=== PATIENT | male | born 1965 | race Caucasian/White ===

== ENCOUNTER 2016-08-23 00:36 | Emergency (ER) | payer BC ==
[~2016-08-23] VITALS: Ht 185.4 cm; Wt 90.0 kg
[2016-08-23 00:37] VITALS: BP 183/101; PULSE 64; RESP 16; TEMP 97.9; O2SAT 97
[2016-08-23 01:09] VITALS: BP 148/70; PULSE 62; RESP 17; O2SAT 99
[2016-08-23] MEDS ORDERED: ASPIRIN 81 MG CHEW TAB PO ONE (02:00)
[2016-08-23] MEDS ORDERED: NITROGLYCERIN 0.4 MG SL 25 TABS/BTL SL ONE (02:00)
[2016-08-23] MEDS ORDERED: SODIUM CHLORIDE 0.9% FLUSH 10 ML FLUSH IVF PRN (02:00)
[2016-08-23] MEDS ORDERED: NITROGLYCERIN 2% OINT 1 GM PACKET TOP ONE (02:00)
--- NOTE | 2016-08-23 02:25 | RADRPT ---
EXAM DATE/TIME: 08/23/2016 02:18 [facility] COMPARISON: No previous studies available for comparison. INDICATIONS : Cephalgia. RADIATION DOSE: 39.74 CTDIvol (mGy) MEDICAL HISTORY : None SURGICAL HISTORY : None. ENCOUNTER: Initial ACUITY: 2 days PAIN SCALE: 6/10 LOCATION: cranial TECHNIQUE: Multiple contiguous axial images were obtained of the head. Using automated exposure control and adj ustment of the mA and/or kV according to patient size, radiation dose was kept as low as reasonably a chievable to obtain optimal diagnostic quality images. FINDINGS: There is no evidence for intracranial hemorrhage, mass effect, mass lesions, edema, or extra-axial fl uid collections. The visualized bony structures appear intact. The ventricles are normal size for t he patient's age. There are no signs of acute infarction for technique. CONCLUSION: Unremarkable study. Zaida Velazquez MD on August 23, 2016 at 2:23 Board Certified Radiologist. This report was verified electronically.
--- NOTE | 2016-08-23 02:28 | RADRPT ---
EXAM DATE/TIME: 08/23/2016 02:23 [facility] COMPARISON: No previous studies available for comparison. INDICATIONS : Chest pain. MEDICAL HISTORY : None. SURGICAL HISTORY : None. ENCOUNTER: Initial ACUITY: 1 day PAIN SCORE: 0/10 LOCATION: Bilateral chest FINDINGS: The lungs are clear without infiltrate, nodule, or mass. There is no appreciable pleural effusion fo r technique. Heart and mediastinum are unremarkable. CONCLUSION: No acute cardiopulmonary disease. Zaida Velazquez MD on August 23, 2016 at 2:26 Board Certified Radiologist. This report was verified electronically.
--- NOTE | 2016-08-23 02:38 | PD ---
HPI Chief Complaint: Headache Time Seen by Provider: 01:33 Travel History International Travel<30 days: No Contact w/Intl Traveler<30days: No Traveled to known affect area: No History of Present Illness HPI The patient is a 51 year old male who presents to the [facility] emergency department with a history of headache over the left side of his head that began 2 days ago. He reports that it began after he drank more alcohol than usual today prior. He has had similar headaches in the past, however this one seemed to be persisting for longer. This evening when the headache seemed to be getting worse, he felt anxious when he tried to go to bed- felt like the beltran were closing in on him. The headache has been constant for 2 days but waxes and wanes in severity. The patient reports that he has tried taking Excedrin and Tylenol for the pain over the last 2 days without much improvement. He reports incidentally that he is also had 2 days of a "burning sensation in his esophagus". He denies taking anything for indigestion. He denies having any problems with acid reflux previously. He exercises by swimming 3 x per week. He denies having any indigestion or chest pain with exercising. He is unsure whether he had a stress test done previously. The patient reports that he felt nauseated prior to arrival and had a sensation that he was having difficulty taking a deep breath. He denies having any diaphoresis. He denies having any pain in his jaw, arms, or throat associated with this. The patient reports that his headache is present behind the left eye, and the left forehead and radiates to the back of the left side of his head. He reports that the pain as a pressure sensation. PCP: Dr. Mccarthy. A review of systems, the patient denies any recent fevers, cough, congestion, neck pain, abdominal pain, vomiting , diarrhea, urinary symptoms, or neurologic symptoms. [facility] Past Medical History Narrative Medical The patient's past medical history is reportedly none. Medical History: Denies Significant Hx Tetanus Vaccination: Unknown Influenza Vaccination: No Past Surgical History Narrative Surgical The patient's past surgical history is reportedly None. Surgical History: No Previous Surgery Social History Alcohol Use: Yes (weekends, 6 beers over the weekend) Tobacco Use: No Substance Use: No Allergies-Medications (Allergen,Severity, Reaction): Coded Allergies: No Known Allergies (Unverified , 08/23/16) Narrative Medication None. Review of Systems Except as stated in HPI: all other systems reviewed are Neg General / Constitutional: No: Fever Eyes: No: Visual changes HENT: Positive: Headaches, No: Rhinorrhea, Congestion, Neck Stiffness, Neck Pain Cardiovascular: Positive: Chest Pain or Discomfort, No: Dyspnea on exertion Respiratory: No: Shortness of Breath Gastrointestinal: Positive: Nausea, Indigestion, No: Vomiting, Abdominal Pain , Changes in Bowel Habits, Loss of Appetite Genitourinary: No: Dysuria Musculoskeletal: No: Pain Skin: No Rash Neurologic: No: Weakness Psychiatric: No: Depression Endocrine: No: Polydipsia Hematologic/Lymphatic: No: Easy Bruising Physical Exam Narrative General: The patient is a well-developed well-nourished male in no acute distress. Head and Neck exam: Head is normocephalic atraumatic. Eyes: EOMI, pupils are equal round and reactive to light. Nose: Midline septum with pink mucous membranes Mouth: Dentition unremarkable. Moist mucus membranes. Posterior oropharynx is not erythematous. No tonsillar hypertrophy. Uvula midline. Airway patent. Neck: No palpable lymphadenopathy. No nuchal rigidity. No thyromegaly. Cardiovascular: Regular rate and rhythm without murmurs, gallops, or rubs. No pulse deficit to the extremities on simultaneously auscultation and palpation of his radial artery. Lungs: Clear to auscultation bilaterally. No wheezes, rhonchi, or rales. Abdomen: Soft, without tenderness to palpation in all 4 quadrants of the abdomen. No guarding, rebound, or rigidity. Normal bowel sounds are audible. No tenderness on palpation of McBurney's point. Negative Exira sign. Extremities: No clubbing, cyanosis, or edema. 2+ pulses in all 4 extremities. No calf tenderness on palpation. Back: No spinous process tenderness to palpation. No costovertebral angle tenderness to palpation. Neurologic Exam: Grossly nonfocal. Skin Exam: No rash noted. Intact skin that is warm and dry. Data Data Last Documented VS Vital Signs Date Time Temp Pulse Resp B/P Pulse Ox O2 Delivery O2 Flow Rate FiO2 08/23/16 02:50 60 17 145/70 100 Room Air 08/23/16 00:37 97.9 Orders Electrocardiogram (08/23/16 01:54) B-Type Natriuretic Peptide (08/23/16 01:54) Ckmb (Isoenzyme) Profile (08/23/16 01:54) Complete Blood Count With Diff (08/23/16 01:54) Comprehensive Metabolic Panel (08/23/16 01:54) Magnesium (Mg) (08/23/16 01:54) Prothrombin Time / Inr (Pt) (08/23/16 01:54) Act Partial Throm Time (Ptt) (08/23/16 01:54) Troponin I (08/23/16 01:54) Lipase (08/23/16 01:54) Chest, Single Ap (08/23/16 01:54) Ecg Monitoring (08/23/16 01:54) Bilateral Bp Monitoring (08/23/16 01:54) Iv Access Insert/Monitor (08/23/16 01:54) Oximetry (08/23/16 01:54) Oxygen Administration (08/23/16 01:54) Aspirin Chew (Aspirin Chew) (08/23/16 02:00) Nitroglycerin 2% Oint (Nitroglycerin 2% (08/23/16 02:00) Sodium Chloride 0.9% Flush (Ns Flush) (08/23/16 02:00) Nitroglycerin Sl (Nitrostat Sl) (08/23/16 02:00) Ct Brain W/O Iv Contrast(Rout) (08/23/16 01:54) CKMB (08/23/16 02:54) CKMB% (08/23/16 02:54) Pantoprazole Inj (Protonix Inj) (08/23/16 03:45) Ketorolac Inj (Toradol Inj) (08/23/16 03:45) Sodium Chlor 0.9% 1000 Ml Inj (Ns 1000 M (08/23/16 03:45) Labs Laboratory Tests Test 08/23/16 02:54 White Blood Count 7.3 TH/MM3 Red Blood Count 4.90 MIL/MM3 Hemoglobin 15.2 GM/DL Hematocrit 43.9 % Mean Corpuscular Volume 89.6 FL Mean Corpuscular Hemoglobin 31.0 PG Mean Corpuscular Hemoglobin 34.6 % Concent Red Cell Distribution Width 12.6 % Platelet Count 241 TH/MM3 Mean Platelet Volume 7.3 FL Neutrophils (%) (Auto) 55.7 % Lymphocytes (%) (Auto) 31.6 % Monocytes (%) (Auto) 9.7 % Eosinophils (%) (Auto) 2.1 % Basophils (%) (Auto) 0.9 % Neutrophils # (Auto) 4.0 TH/MM3 Lymphocytes # (Auto) 2.3 TH/MM3 Monocytes # (Auto) 0.7 TH/MM3 Eosinophils # (Auto) 0.2 TH/MM3 Basophils # (Auto) 0.1 TH/MM3 CBC Comment DIFF FINAL Differential Comment Prothrombin Time 10.0 SEC Prothromb Time International 0.9 RATIO Ratio Activated Partial 25.7 SEC Thromboplast Time Sodium Level 144 MEQ/L Potassium Level 3.9 MEQ/L Chloride Level 108 MEQ/L Carbon Dioxide Level 27.9 MEQ/L Anion Gap 8 MEQ/L Blood Urea Nitrogen 11 MG/DL Creatinine 0.90 MG/DL Estimat Glomerular Filtration 90 ML/MIN Rate Random Glucose 104 MG/DL Calcium Level 8.5 MG/DL Magnesium Level 2.3 MG/DL Total Bilirubin 0.3 MG/DL Aspartate Amino Transf 28 U/L (AST/SGOT) Alanine Aminotransferase 73 U/L (ALT/SGPT) Alkaline Phosphatase 84 U/L Total Creatine Kinase 175 U/L Creatine Kinase MB 1.6 NG/ML Troponin I LESS THAN 0.02 NG/ML B-Type Natriuretic Peptide 26 PG/ML Total Protein 7.1 GM/DL Albumin 3.9 GM/DL Lipase 142 U/L MDM Medical Decision Making Medical Screen Exam Complete: Yes Emergency Medical Condition: Yes Medical Record Reviewed: Yes Interpretation(s) Last Impressions Head CT 08/23/16153 Signed Impressions: Service Date/Time: Tuesday, August 23, 2016 02:18 - CONCLUSION: Unremarkable study. Zaida Velazquez MD Chest X-Ray 08/23/16153 Signed Impressions: Service Date/Time: Tuesday, August 23, 2016 02:23 - CONCLUSION: No acute cardiopulmonary disease. Zaida Velazquez MD Differential Diagnosis Acute coronary syndrome, versus acid reflux, versus panic attack, versus pneumothorax, versus hypertension, versus intracranial abnormality, versus tension headache, versus migraine headache, versus sinus headache Narrative Course During the course of the patients emergency department visit, the patients history, examination, and differential diagnosis were reviewed with the patient. The patient had IV access obtained and blood work sent for analysis. The patient was placed on a lunchroom monitor with oximetry and blood pressure monitoring. An EKG was done on arrival. The patient's EKG shows a sinus rhythm heart rate of 61, no acute ST segment elevation or depression, QRS duration is 109 ms, QTC 398 ms. T waves are inverted in lead 3, V1. The patient was initially provided normal saline 1 L IV fluid bolus. Aspirin 162 mg by mouth 1, Protonix 40 mg IV, Toradol 15 mg IV 1 for headache. The patient refused as he reports that he is feeling improved, the administration of the Toradol and Protonix. The patients laboratory studies were reviewed and remarkable for a white count of 7.3, hemoglobin 15.2, platelets 241 with 9.7 monocytes. CMP is remarkable for chloride of 108, CPK 175, troponin I of less than 0.02, lipase 142, BNP 26, PT 10, PTT 25.7 Radiology studies were reviewed and remarkable for a chest x-ray that shows no acute abnormality. CT scan of the brain shows an unremarkable study according to the reading radiologist. The patient was offered admission to the chest pain center for rule out serial cardiac enzyme protocol. The patient reports that he prefers to follow-up with his primary care physician as an outpatient. The patient reports feeling improved. The patient is resting comfortably and feels better, is alert and in no distress. The patients results and examination findings were discussed with the patient. The repeat examination is unremarkable and benign. The history, exam, diagnostic testing, and current condition do not suggest any significant pathology to warrant further testing, continued ED treatment, admission, or surgical evaluation at this point. The vital signs have been stable. The patient does not have uncontrollable pain, intractable vomiting, or other significant symptoms. The patient's condition is stable and appropriate for discharge. The patient will pursue further outpatient evaluation with a primary care physician or other designated or consulting physician as indicated in the discharge instructions. The patient expressed understanding and was agreeable with this plan. Diagnosis Primary Impression: Indigestion Additional Impressions: Headache Qualified Code: R51 - Acute nonintractable headache, unspecified headache type Chest pain Qualified Code: R07.89 - Other chest pain Referrals: Primary Care Physician Patient Instructions: Acute Headache (ED), Chest Pain (ED), General Instructions Additional Instructions: Return immediately to the emergency department if he develops any recurrence of chest pain, shortness of breath, worsening signs or symptoms, or new symptoms. Med/Other Pt SpecificInfo: No Meds Exist/No RX given Disposition: 01 DISCHARGE HOME Condition: Stable Debbie Calabrese MD Aug 23, 2016 02:38
[2016-08-23 02:50] VITALS: BP 145/70; PULSE 60; RESP 17; O2SAT 100
[2016-08-23 03:02] LABS: BASOPHIL # 0.1 TH/MM3 (0-0.2); BASOPHIL % 0.9 % (0.0-2.0); EOSINOPHIL # 0.2 TH/MM3 (0-0.4); EOSINOPHIL % 2.1 % (0.0-4.0); HEMATOCRIT 43.9 % (39.0-51.0); HEMO FLAGS DIFF FINAL; LYMPH % 31.6 % (9.0-44.0); LYMPHOCYTE # 2.3 TH/MM3 (1.0-4.8); MEAN CELL VOLUME 89.6 FL (80.0-100.0); MEAN CORPUSCULAR HGB CONC 34.6 % (32.0-36.0); MONO % 9.7 % (0.0-8.0); NEUT % 55.7 % (16.0-70.0); PLATELET COUNT 241 TH/MM3 (150-450); RED CELL DISTRIBUTION WIDTH 12.6 % (11.6-17.2); WHITE BLOOD COUNT 7.3 TH/MM3 (4.0-11.0)
[2016-08-23 03:14] LABS: ALT (GPT) 73 U/L (12-78); ANION GAP 8 MEQ/L (5-15); APTT (PATIENT) 25.7 SEC (24.3-30.1); AST (GOT) 28 U/L (15-37); BICARBONATE 27.9 MEQ/L (21.0-32.0); BLOOD UREA NITROGEN 11 MG/DL (7-18); CHLORIDE 108 MEQ/L (98-107); GLOMERULAR FILTRATION RATE 90 ML/MIN (>89); INTERNATIONAL NORMALIZED RATIO 0.9 RATIO; MAGNESIUM 2.3 MG/DL (1.5-2.5); POTASSIUM 3.9 MEQ/L (3.5-5.1); SODIUM (NA) 144 MEQ/L (136-145)
[2016-08-23 03:19] LABS: ALKALINE PHOSPHATASE 84 U/L (45-117); CREATINE KINASE 175 U/L (39-308); TOTAL BILIRUBIN ADULT 0.3 MG/DL (0.2-1.0)
[2016-08-23 03:33] LABS: CKMB 1.6 NG/ML (0.5-3.6)
[2016-08-23] MEDS ORDERED: KETOROLAC TROMETHAMINE 30 MG/ML (IVP) VIAL IV PUSH ONE (03:45)
[2016-08-23] MEDS ORDERED: SODIUM CHLOR 0.9% 1000 ML INJ 1,000 ML IV ONE (03:45)
[2016-08-23] MEDS ORDERED: PANTOPRAZOLE SODIUM 40 MG VIAL IV PUSH ONE (03:45)
--- NOTE | 2016-08-23 07:51 | EKG ---
Date Performed: 08/23/2016 Time Performed: 02:51:13 PTAGE: 51 years EKG: Sinus rhythm NORMAL ECG NO PREVIOUS TRACING DOCTOR: Max Lawrence Interpretating Date/Time 08/23/2016 07:49:35
== END 2016-08-23 05:00 | disposition home or self-care (01) ==
LOC: NEPC 00:36
DX: K30 Functional dyspepsia (principal); R51 Headache; R07.9 Chest pain, unspecified; R11.0 Nausea
CPT/HCPCS: 70450; 71010; 80053; 82550; 82552; 83690; 83735; 83880; 84484; 85025; 85610; 85730; 93005; 99285; J7030

== ENCOUNTER 2017-03-10 23:39 | Emergency (ER) | payer BC ==
[~2017-03-10] VITALS: Ht 182.9 cm; Wt 90.0 kg
[2017-03-10 23:40] VITALS: BP 160/93; PULSE 59; RESP 17; TEMP 97.7; O2SAT 98
--- NOTE | 2017-03-11 00:16 | PD ---
HPI Chief Complaint: Abdominal Pain Time Seen by Provider: 23:56 Travel History International Travel<30 days: No Contact w/Intl Traveler<30days: No Traveled to known affect area: No History of Present Illness HPI This patient complains of some vague abdominal discomfort and bloating. It comes and goes. He is currently not having any pain. He saw his primary physician today and had some lab studies done including LFTs. He is scheduled for an outpatient hida scan in the near future. No fever or vomiting. Normal stooling. He drinks 5 alcoholic drinks per week. He's had discomfort bilaterally down the abdomen. His chief complaint today is that he has a urinary infection. He says he has urinary frequency. PFSH Past Medical History Anxiety: Yes (panic attack) Diminished Hearing: No Tetanus Vaccination: Unknown Influenza Vaccination: No Past Surgical History Surgical History: No Previous Surgery Social History Alcohol Use: Yes (weekly) Tobacco Use: No Substance Use: No Allergies-Medications (Allergen,Severity, Reaction): Coded Allergies: No Known Allergies (Unverified Adverse Reaction, Unknown, 03/10/17) Review of Systems General / Constitutional: No: Fever Eyes: No: Visual changes HENT: No: Headaches Cardiovascular: No: Chest Pain or Discomfort Respiratory: No: Shortness of Breath Gastrointestinal: Positive: Abdominal Pain Genitourinary: Positive: Frequency, No: Dysuria Musculoskeletal: No: Pain Skin: No Rash Neurologic: No: Weakness Psychiatric: No: Depression Endocrine: No: Polydipsia Hematologic/Lymphatic: No: Easy Bruising Physical Exam Narrative GENERAL: Well-nourished, well-developed patient in no apparent distress. SKIN: Focused skin assessment reveals no rash and nodules. Skin is Warm and dry. HEAD: Atraumatic. Normocephalic. EYES: Pupils equal and round. No scleral icterus. No injection or drainage. ENT: No nasal bleeding or discharge. Mucous membranes pink and moist. NECK: Trachea midline. No JVD. CARDIOVASCULAR: Regular rate and rhythm. No murmur appreciated. RESPIRATORY: No accessory muscle use. Clear to auscultation. Breath sounds equal bilaterally. GASTROINTESTINAL: Abdomen soft, non-tender, nondistended. Hepatic and splenic margins not palpable. MUSCULOSKELETAL: No obvious deformities. No clubbing. No cyanosis. No edema. NEUROLOGICAL: Awake and alert. No obvious cranial nerve deficits. Motor grossly within normal limits. Normal speech. PSYCHIATRIC: Appropriate mood and affect; insight and judgment normal. Data Data Last Documented VS Vital Signs Date Time Temp Pulse Resp B/P (MAP) Pulse Ox O2 Delivery O2 Flow Rate FiO2 03/10/17 23:40 97.7 59 17 160/93 (115) 98 Room Air Orders Orders Urinalysis - C+S If Indicated (03/11/17 00:05) Labs Laboratory Tests Test 03/11/17 00:05 Urine Color LIGHT-YELLOW Urine Turbidity CLEAR Urine pH 7.5 Urine Specific [place] 1.005 Urine Protein NEG mg/dL Urine Glucose (UA) NEG mg/dL Urine Ketones NEG mg/dL Urine Occult Blood NEG Urine Nitrite NEG Urine Bilirubin NEG Urine Urobilinogen LESS THAN 2.0 MG/DL Urine Leukocyte Esterase NEG Urine Mucus FEW /lpf Microscopic Urinalysis Comment CULT NOT INDICATED MDM Medical Decision Making Medical Screen Exam Complete: Yes Emergency Medical Condition: Yes Medical Record Reviewed: Yes Differential Diagnosis Dyspepsia, irritable bowel syndrome, colitis Narrative Course I have reviewed the patient's electronic medical record. Patient is a soft benign nontender abdomen and looks asymptomatic. He is in the middle of a workup to evaluate his gallbladder. Urinalysis is normal Patient belatedly says that he had a gallbladder ultrasound earlier today as well as lab studies had a workup already just needs to get the results and discussed them with his physician Diagnosis Primary Impression: Abdominal pain Qualified Codes: R10.84 - Generalized abdominal pain Additional Impression: Urinary frequency Additional Instructions: The patient was advised to follow up with their physician and return if they worsen. Med/Other Pt SpecificInfo: Other Disposition: 01 DISCHARGE HOME Condition: Stable Reji Mei MD Mar 11, 2017 00:16
[2017-03-11 00:31] LABS: BILIRUBIN, URINE NEG (NEG); BLOOD, URINE NEG (NEG); GLUCOSE,URINE NEG (NEG); KETONE, URINE NEG (NEG); MUCUS URINE FEW /lpf (OCC); NITRITE,URINE NEG (NEG); PH, URINE 7.5 (5.0-8.5); URINE COLOR LIGHT-YELLOW (YELLW/STRAW); URINE LEUKOCYTE ESTERASE NEG (NEG)
== END 2017-03-11 00:48 | disposition home or self-care (01) ==
LOC: NEPD 23:39
DX: R10.84 Generalized abdominal pain (principal); R35.0 Frequency of micturition; F41.9 Anxiety disorder, unspecified
CPT/HCPCS: 81001; 99283